=== PATIENT | male | born 1955 | race Caucasian/White ===

== ENCOUNTER 2017-01-15 09:16 | Emergency (ER) | payer MEDICAID ==
[~2017-01-15] VITALS: Ht 182.9 cm; Wt 91.0 kg
[~2017-01-15 09:16] MED LIST: ASCO500C PO; ATOR10TA15 PO; CIAL20TA PO; CITA10TA4 PO; FLUTI220I INH; METO25TA3 PO; MULT1TAB85 PO; PANT40TA3 PO; PYRI1TAB2 PO; SPIRCAP INH; VITA500T49 PO
[2017-01-15 09:23] VITALS: BP 135/92; PULSE 82; RESP 18; TEMP 98.2; O2SAT 96
[2017-01-15] MEDS ORDERED: SPIRCAP INH (09:44)
[2017-01-15] MEDS ORDERED: ZYRT10CA PO (09:44)
[2017-01-15] MEDS ORDERED: PRED20 PO (09:54)
[2017-01-15] MEDS ORDERED: ALBU0.08 NEB (09:54)
[2017-01-15] MEDS ORDERED: TETANUS/DIPHTHERIA TOXOID ADULT 0.5 ML VIAL IM ONE (10:00)
--- NOTE | 2017-01-15 10:01 | PD ---
HPI Chief Complaint: Laceration/Skin Injury Time Seen by Provider: 09:40 Travel History International Travel<30 days: No Contact w/Intl Traveler<30days: No Traveled to known affect area: No History of Present Illness HPI This patient complains of having some bronchitis as well as a puncture wound to his right foot. He does have a chronic cough and is a smoker. He is nebulizer with albuterol at home. He says the only thing that helps his bronchitis as when he gets a week of prednisone. Denies fever or chest pain. His puncture wound was 2 days ago and he needs a tetanus booster. He stepped on a nail. Severity of symptoms is mild PFSH Past Medical History Arthritis: Yes Asthma: Yes Autoimmune Disease: No Blood Disorders: Yes (BLOOD CLOT LEFT LEG) Anxiety: No Depression: No Heart Rhythm Problems: No Cancer: Yes (THROAT) Cardiac Catheterization: Yes Cardiovascular Problems: No High Cholesterol: No Chemotherapy: Yes Chest Pain: No Congestive Heart Failure: No COPD: Yes Cerebrovascular Accident: No Diabetes: No Diminished Hearing: No Endocrine: No Gastrointestinal Disorders: Yes GERD: Yes Glaucoma: No Genitourinary: No Headaches: No Hepatitis: No Hiatal Hernia: No Hypertension: Yes Inguinal Hernia: Yes Kidney Stones: No Musculoskeletal: Yes Neurologic: No Psychiatric: No Reproductive: No Respiratory: No Immunizations Current: No Myocardial Infarction: No Radiation Therapy: Yes (FINISHED 01/04/2010) Renal Failure: No Seizures: No Sickle Cell Disease: No Sleep Apnea: No Thyroid Disease: No Ulcer: No Tetanus Vaccination: Unknown Past Surgical History Abdominal Surgery: Yes (ROLAND INGUINAL HERNIA REPAIR; UMBILICAL HERNIA) AICD: No Appendectomy: Yes Arteriovenous Shunt: No Cardiac Surgery: No Cholecystectomy: No Endocrine Surgery: No Eye Surgery: No Genitourinary Surgery: No Gynecologic Surgery: No Pacemaker: No Thoracic Surgery: No Tonsillectomy: Yes Other Surgery: Yes (INGUINAL HERNIA REPAIR) Social History Alcohol Use: No Tobacco Use: Yes (1/2 PPD) Substance Use: No Allergies-Medications (Allergen,Severity, Reaction): Coded Allergies: No Known Allergies (Verified , 01/15/17) Reported Meds & Prescriptions Reported Meds & Active Scripts Active Albuterol Neb (Albuterol Sulfate) 2.5 Mg/3 Ml Neb 2.5 Mg NEB Q4HR NEB PRN Prednisone 20 Mg Tab 20 Mg PO DAILY Reported Spiriva Handihaler (Tiotropium Inh) 18 Mcg Cap 18 Mcg INH DAILY 1 capsule = 18 mcg Zyrtec Allergy (Cetirizine HCl) 10 Mg Cap 10 Mg PO DAILY Flovent Hfa 12 GM Inh (Fluticasone Propionate) 220 Mcg/Act Inh 1 Puff INH BID Citalopram (Citalopram Hydrobromide) 10 Mg Tab 10 Mg PO DAILY Pantoprazole (Pantoprazole Sodium) 40 Mg Tab 40 Mg PO DAILY Metoprolol Tartrate 25 Mg Tab 25 Mg PO DAILY Atorvastatin (Atorvastatin Calcium) 10 Mg Tab 10 Mg PO HS Review of Systems General / Constitutional: No: Fever Cardiovascular: No: Chest Pain or Discomfort Respiratory: Positive: Cough Gastrointestinal: No: Vomiting Physical Exam Narrative RESPIRATORY: Respiratory effort unlabored, no retractions or use of accessory muscles. Breath sounds are clear and symmetric. GASTROINTESTINAL: Abdomen soft, non-tender, nondistended. Positive bowel sounds. No hepato-splenomegaly, or palpable masses. No guarding. Right foot: Minor abrasion on the bottom of his sole of foot, no deep puncture. No sign of infection Data Data Last Documented VS Vital Signs Date Time Temp Pulse Resp B/P Pulse Ox O2 Delivery O2 Flow Rate FiO2 01/15/17 09:23 98.2 82 18 135/92 96 Orders Tetanus/Diphtheria Tox Adult (Tetanus/Di (01/15/17 10:00) MDM Medical Decision Making Medical Screen Exam Complete: Yes Emergency Medical Condition: Yes Medical Record Reviewed: Yes Differential Diagnosis Bronchitis, COPD, puncture wound Narrative Course I have reviewed the patient's electronic medical record. I wrote him one week of prednisone at his request and refilled his albuterol nebulizer liquid. I updated his tetanus booster. Discussed wound care for his right foot Diagnosis Primary Impression: Acute viral bronchitis Additional Impression: Puncture wound Additional Instructions: The patient was advised to follow up with their physician and return if they worsen. Med/Other Pt SpecificInfo: Prescription(s) given Scripts Albuterol Neb 2.5 Mg/3 Ml Neb2.5 Mg NEB Q4HR NEB PRN (SHORTNESS OF BREATH) #60 NEBULE Ref 0 Prov:Dmitriy Zelaya MD 01/15/17 Prednisone 20 Mg Tab20 Mg PO DAILY #7 TAB Ref 0 Prov:Dmitriy Zelaya MD 01/15/17 Disposition: 01 DISCHARGE HOME Condition: Stable Dmitriy Zelaya MD Jan 15, 2017 10:01
== END 2017-01-15 10:14 | disposition home or self-care (01) ==
LOC: PHEFT 09:16
DX: J20.8 Acute bronchitis due to other specified organisms (principal); F17.210 Nicotine dependence, cigarettes, uncomplicated; S91.331A Puncture wound without foreign body, right foot, initial encounter; W45.0XXA Nail entering through skin, initial encounter; Z23 Encounter for immunization
CPT/HCPCS: 90471; 90714

== ENCOUNTER 2017-08-13 10:14 | Emergency (ER) | payer MEDICAID ==
[~2017-08-13] VITALS: Ht 182.9 cm; Wt 95.0 kg
[~2017-08-13 10:14] MED LIST changes: +ALBU0.08 NEB; -ASCO500C PO; -CIAL20TA PO; -MULT1TAB85 PO; +PRED20 PO; -PYRI1TAB2 PO; -VITA500T49 PO; +ZYRT10CA PO
[2017-08-13 10:18] VITALS: BP 125/86; PULSE 66; RESP 16; TEMP 97.3; O2SAT 97
[2017-08-13] MEDS ORDERED: LOSA50TA PO (10:51)
[2017-08-13] MEDS ORDERED: MONT10TA4 PO (10:51)
[2017-08-13] MEDS ORDERED: CETI10 PO (10:51)
--- NOTE | 2017-08-13 11:10 | PD ---
HPI Chief Complaint: Fall Time Seen by Provider: 10:50 Travel History International Travel<30 days: No Contact w/Intl Traveler<30days: No Traveled to known affect area: No History of Present Illness HPI This patient came for 2 reasons. Reason #1 is 1 week ago he was on a cruise and cut dizzy and lightheaded and passed out. This was 6 days ago. Today he feels fine. He has absolutely 0 symptoms. Reason number 2 is that yesterday he noticed there is a bit of blood in the saliva. Does not have olivia hemoptysis. No shortness of breath or chest pain. He is a smoker. No bleeding today. PFSH Past Medical History Arthritis: Yes Asthma: Yes Autoimmune Disease: No Blood Disorders: Yes (BLOOD CLOT LEFT LEG) Anxiety: No Depression: No Heart Rhythm Problems: No Cancer: Yes (THROAT) Cardiac Catheterization: Yes Cardiovascular Problems: No High Cholesterol: Yes Chemotherapy: Yes Chest Pain: No Congestive Heart Failure: No COPD: Yes Cerebrovascular Accident: No Diabetes: No Diminished Hearing: No Endocrine: No Gastrointestinal Disorders: Yes GERD: Yes Glaucoma: No Genitourinary: No Headaches: Yes Hepatitis: No Hiatal Hernia: No Hypertension: Yes Inguinal Hernia: Yes Kidney Stones: No Medical other: Yes (tinitis) Musculoskeletal: Yes Neurologic: No Psychiatric: No Reproductive: No Respiratory: No Immunizations Current: No Myocardial Infarction: No Radiation Therapy: Yes (FINISHED 01/04/2010) Renal Failure: No Seizures: No Sickle Cell Disease: No Sleep Apnea: No Thyroid Disease: No Ulcer: No Influenza Vaccination: No Past Surgical History Abdominal Surgery: Yes (ROLAND INGUINAL HERNIA REPAIR; UMBILICAL HERNIA) AICD: No Appendectomy: Yes Arteriovenous Shunt: No Cardiac Surgery: No Cholecystectomy: No Endocrine Surgery: No Eye Surgery: No Genitourinary Surgery: No Gynecologic Surgery: No Pacemaker: No Thoracic Surgery: No Tonsillectomy: Yes Other Surgery: Yes (INGUINAL HERNIA REPAIR) Social History Alcohol Use: Yes (occas) Tobacco Use: Yes (1/2 PPD) Substance Use: No Allergies-Medications (Allergen,Severity, Reaction): Coded Allergies: No Known Allergies (Verified , 01/15/17) Reported Meds & Prescriptions Reported Meds & Active Scripts Active Albuterol Neb (Albuterol Sulfate) 2.5 Mg/3 Ml Neb 2.5 Mg NEB Q4HR NEB PRN Reported Losartan (Losartan Potassium) 50 Mg Tab 50 Mg PO DAILY Cetirizine (Cetirizine HCl) 10 Mg Tab 10 Mg PO DAILY Montelukast (Montelukast Sodium) 10 Mg Tab 10 Mg PO HS Spiriva Handihaler (Tiotropium Inh) 18 Mcg Cap 18 Mcg INH DAILY 1 capsule = 18 mcg Flovent Hfa 12 GM Inh (Fluticasone Propionate) 220 Mcg/Act Inh 1 Puff INH BID Citalopram (Citalopram Hydrobromide) 10 Mg Tab 20 Mg PO DAILY Pantoprazole (Pantoprazole Sodium) 40 Mg Tab 40 Mg PO DAILY Metoprolol Tartrate 25 Mg Tab 25 Mg PO BID Atorvastatin (Atorvastatin Calcium) 10 Mg Tab 10 Mg PO HS Review of Systems General / Constitutional: No: Fever HENT: No: Headaches Cardiovascular: No: Chest Pain or Discomfort Respiratory: No: Cough Physical Exam Narrative GENERAL: Well-nourished, well-developed patient in no apparent distress. SKIN: Focused skin assessment reveals no rash and nodules. Skin is Warm and dry. HEAD: Atraumatic. Normocephalic. EYES: Pupils equal and round. No scleral icterus. No injection or drainage. ENT: No nasal bleeding or discharge. Mucous membranes pink and moist. NECK: Trachea midline. No JVD. CARDIOVASCULAR: Regular rate and rhythm. No murmur appreciated. RESPIRATORY: No accessory muscle use. Clear to auscultation. Breath sounds equal bilaterally. GASTROINTESTINAL: Abdomen soft, non-tender, nondistended. Hepatic and splenic margins not palpable. MUSCULOSKELETAL: No obvious deformities. No clubbing. No cyanosis. No edema. NEUROLOGICAL: Awake and alert. No obvious cranial nerve deficits. Motor grossly within normal limits. Normal speech. PSYCHIATRIC: Appropriate mood and affect; insight and judgment normal. Data Data Last Documented VS Vital Signs Date Time Temp Pulse Resp B/P (MAP) Pulse Ox O2 Delivery O2 Flow Rate FiO2 08/13/17 10:18 97.3 66 16 125/86 (99) 97 MDM Medical Decision Making Medical Screen Exam Complete: Yes Emergency Medical Condition: Yes Medical Record Reviewed: Yes Differential Diagnosis Vasovagal episode, cardiac arrhythmia, motion sickness, alcohol over indulgence Narrative Course I have reviewed the patient's electronic medical record. Patient looks clinically well now. He has normal vital signs and 0 symptoms. I think he should discuss these 2 issues with his primary care physician. He is in a sinus rhythm now with no ectopy No emergent indication for studies. Advised to stop smoking He should not make light of these 2 issues and discussed them with his physician for recommendations on any further workup or follow-up but I don't think this needs to be emergently done a week later. Diagnosis Primary Impression: Syncope Qualified Codes: R55 - Syncope and collapse Additional Instructions: The patient was advised to follow up with their physician and return if they worsen. Med/Other Pt SpecificInfo: Other Disposition: 01 DISCHARGE HOME Condition: Stable Dmitriy Zelaya MD Aug 13, 2017 11:10
== END 2017-08-13 11:19 | disposition home or self-care (01) ==
LOC: PHED 10:14
DX: R55 Syncope and collapse (principal); E78.00 Pure hypercholesterolemia, unspecified; F17.210 Nicotine dependence, cigarettes, uncomplicated; I10 Essential (primary) hypertension; J44.9 Chronic obstructive pulmonary disease, unspecified; K21.9 Gastro-esophageal reflux disease without esophagitis
CPT/HCPCS: 99282